=== PATIENT | female | born 1980 | race Caucasian/White ===

== ENCOUNTER 2017-12-14 08:48 | Inpatient (IN) | payer OTHER ==
[2017-12-14] MEDS ORDERED: NS 1,000 ML IV ONE (08:53)
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
[2017-12-14 09:27] LABS: PLATELET COUNT 225 10^3/uL (150-400)
[2017-12-14 09:35] LABS: INR 1.03 (0.83-1.16); PROTIME(PATIENT) 13.7 SEC (12.0-15.0)
[2017-12-14] MEDS ORDERED: ONDANSETRON 4 MG/2 ML VIAL ONE (10:14)
--- NOTE | 2017-12-14 15:59 | CPEKG ---
Test Reason : OPEN Blood Pressure : / mmHG Vent. Rate : 088 BPM Atrial Rate : 090 BPM P-R Int : 156 ms QRS Dur : 113 ms QT Int : 373 ms P-R-T Axes : 047 047 008 degrees QTc Int : 452 ms Sinus rhythm Probable left ventricular hypertrophy Confirmed by Adonay Gonzales ([id number]) on 12/14/2017 3:59:31 PM Referred By: Confirmed By:Adonay Gonzales
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
[2017-12-14] MEDS ORDERED: NICOTINE POLACRILEX 2 MG GUM B PRN (23:31)
[2017-12-14] MEDS ORDERED: MAGNESIUM HYDROXIDE 30 ML UDCUP PO PRN (23:31)
[2017-12-14] MEDS ORDERED: MAG HYDROX/AL HYDROX/SIMETH 30 ML UDCUP PO PRN (23:31)
[2017-12-14] MEDS ORDERED: ACETAMINOPHEN 325 MG TAB ONE (23:57)
[2017-12-15] MEDS: ACETAMINOPHEN 325 MG TAB PO PRN ×2 (00:26→15:31)
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
[2017-12-15] MEDS: OLANZapine DISINTEGR 10 MG TAB PO PRN ×2 (12:15→23:54)
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
[2017-12-15] MEDS: LORazepam 0.5 MG TAB PO PRN ×2 (14:45→23:54)
[2017-12-15] MEDS ORDERED: OLANZapine DISINTEGR 10 MG TAB PO ONE (14:56)
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
[2017-12-15] MEDS ORDERED: OLANZapine DISINTEGR 10 MG TAB PO SCH (21:00)
[2017-12-16] MEDS: ACETAMINOPHEN 325 MG TAB PO PRN (03:56)
--- NOTE | 2017-12-16 06:22 | PDMN ---
Medical Necessity Medical necessity: [facility] B004-IP bipolar disorder INPT care 4 days- M1 hold , unable to care for self, unable to care for her , safety risk. crisis stabilization, med eval needed.
[2017-12-16] MEDS: OLANZapine DISINTEGR 10 MG TAB PO PRN ×2 (06:38→11:02)
--- NOTE | 2017-12-16 07:26 | SOAPPROG ---
SOAP Progress Note Assessment/Plan: Assessment: Bipolar I Disorder, current romy. No improvement noted. (see subjective/ objective note). Patient is not safe to discharge at this time as patient continues to exhibit signs of acute romy, and express romy symptoms. Patient requires continued inpatient care because of current acute mood instability/ romy, and requires inpatient level of care to stabilize in order to no longer be gravely disabled due to mental illness. Patient could benefit from continued inpatient hospitalization for crisis stabilization, safety, and medication evaluation. Plan: (1) Psychotropic medications: After reviewing options, risks, and benefits patient agrees to continue current medications. No other medication changes at this time as more time is needed to determine ongoing tolerability and efficacy. Plan is to continue to observe patient for response and side effects from medications, and ongoing monitoring and evaluation. Consider starting [place] [facility] 600 mg BID and Zyprexa Zydis 10 mg po QHS. (2) Review with patient informed consent and recommendations for psychotropic medication treatment listed below (3) Labs: no additional labs at this time (4) Therapy: continue milieu and group therapy (5) Further investigation including gathering information from patients relatives and review of past case records to inform treatment plan. (6) Safety/Wellness plan and follow-up outpatient appointments to be established prior to discharge. Next steps are for patient to meet with health care recruiter to plan a safe discharge plan and establish outpatient services for ongoing treatment. (7) Confer with inpatient treatment team regarding treatment plan. (8) Legal status: M1 (9) Consider discharge next week if patient is in stable condition, safe, and has a safe discharge plan. (10) Obtain consent from patient to contact patient's parents to obtain collateral PSYCHOTROPIC MEDICATION TREATMENT INFORMED CONSENT and RECOMMENDATIONS: Review nature of condition, diagnosis, and prognosis. Review nature and purpose of psychotropic medication treatment. Review type of psychotropic medications being ordered. Review risk and benefits of psychotropic medication treatment. Review probable length of time patient will need to take medications. Review risk and benefits of not undergoing psychotropic medication treatment. Review alternative treatments to psychotropic medications. Review psychotropic medications contraindications, drug-drug interactions, side effects, and importance of reporting any side effects to a psychiatric provider or nurse during inpatient hospitalization, and upon discharge to patients psychiatric outpatient provider, primary care provider, or other health care management specialist. Review importance of asking a nurse, psychiatric provider, or primary care provider any questions or problems concerning the psychotropic medications. Verify patient understands the information that has been provided, and understands, accepts, and agrees to psychotropic medications. Review patients safety plan and importance of patient to report to staff while hospitalized if patient is ever a danger to self/others, or unable to care for self, and upon discharge, the importance for patient to contact [facility] or [facility], or go to the nearest emergency room, if patient is ever a danger to self/others, or unable to care for self. Recommend that upon discharge patient establish medication management treatment with a psychiatric provider, establishes routine therapy appointments, and follow-up with primary care provider. Verify patient understands and agrees to these recommendations. 12/16/17 07:26 Subjective: Following up with patient for evaluation of romy and safety. Patient reports, "I did not sleep last night, have lots of thoughts to share with you." Patient expresses the following psychiatric symptoms racing thoughts, decreased need for sleep, irritable, and agitated. Patient reports taking medications as prescribed, and describes response to medications as, "Zyprexa helped to slow my thoughts down." Patient does not report undesirable side effects from the medications. Patient reports appetite as poor, and reports no feeling hungry. Patient describes getting no sleep last night. Objective: Vital Signs Temp Pulse Resp BP Pulse Ox 36.6 C 110 H 16 147/105 H 94 12/16/17 06:00 12/16/17 06:00 12/16/17 06:00 12/16/17 06:00 12/16/17 06:00 PT 13.7 SEC (12.0-15.0) 12/14/17 09:08 INR 1.03 (0.83-1.16) 12/14/17 09:08 NURSING REPORT: Consulted with nursing for update on patients progress in treatment. Nurses report patient is not engaged in treatment, is not attending groups, slept 0.5 hours, expresses the following psychiatric symptoms: racing thoughts, unable to sleep; exhibits the following psychiatric symptoms: distractible, disorganized, tangential, pacing halls, labile, intermittent tearfulness, nonsensical, non-linear, illogical, and paranoid; is not eating all meals, is attending to ADLs with direction from staff, is taking medications as prescribed with no report of side effects, with no s/s of EPS/ akathisia, and denies SI/HI, denies A/V hallucinations, and denies delusions. EMBROIDERY CUTTER UPDATE: currently working to set-up outpatient services for medication management and therapy. MSE: The patient is a well-nourished female looking stated chronological age. Attire is appropriate and dress is casual, and is neat and clean. Grooming status is inappropriate and disheveled. Ambulation is independent. Gait is normal and coordinated. Posture is normal and relaxed. Eye contact is appropriate, and adequate. Motor activity is appropriate with purposeful, organized, coordinated movements; with no involuntary movements. Patient writes down everything she says verbatim in a disorganized manner, tearing several pages out of a journal and only writes a few words on per page and then tears-out a new page from journal to write on. Attitude is uncooperative and guarded, defensive, and irritable; agitated. Patient appears distractible and does not relate well to this interviewer. Language production is spontaneous. Rate is pressured. Latency of response is shortened, with irritable, dramatic tone, and high volume, and amount is hypertalkative. Articulation is clear. Patient reports mood as great with expansive, inappropriate affect. Patients thought process is non-linear, disorganized, illogical, tangential, pressured. Associations are loose. Patient does not report suicidal/homicidal thoughts, ideas, or plans. Patient denies auditory, visual hallucinations. Patient denies delusions. Patient does not appear to be attending to internal stimuli. Patients attention and concentration are poor. Patient is oriented to person , place. Patients insight is poor. Patients judgment is poor. - Time Spent With Patient Time Spent With Patient: 15 minutes, met with patient individually. - Pending Discharge Pending Discharge Within 24 Hours: No Pending Discharge Within 48 Hours: No ICD10 Worksheet Patient Problems: Problems Problem Status Onset Bipolar illness Acute Bipolar 1 disorder Acute Dehydration Acute Hypertension Acute (spontaneous vaginal delivery) Acute
[2017-12-16] MEDS: LEVOTHYROXINE 88 MCG TAB PO SCH (08:03)
[2017-12-16] MEDS ORDERED: OLANZapine DISINTEGR 10 MG TAB PO PRN (11:11)
[2017-12-16] MEDS ORDERED: LORazepam 0.5 MG TAB PO PRN (11:12)
[2017-12-16] MEDS: LITHIUM CARBONATE ER 300 MG TAB PO SCH ×2 (14:08→20:51)
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
[2017-12-16] MEDS: amLODIPine BESYLATE 5 MG TAB PO SCH (17:46)
[2017-12-16] MEDS: LURASIDONE HCL 40 MG TAB PO SCH (17:46)
[2017-12-16] MEDS ORDERED: IBUPROFEN 600 MG TAB PO ONE (21:45)
[2017-12-17] MEDS: ACETAMINOPHEN 500 MG TAB PO PRN ×2 (01:21→17:19)
[2017-12-17] MEDS: OLANZapine 5 MG TAB PO PRN (01:30)
--- NOTE | 2017-12-17 08:30 | SOAPPROG ---
SOAP Progress Note Assessment/Plan: Assessment: Bipolar I Disorder, current romy. No improvement noted. (see subjective/ objective note). Patient is not safe to discharge at this time as patient continues to exhibit signs of romy, and express romy symptoms. Patient requires continued inpatient care because of current mood instability, and requires inpatient level of care to stabilize in order to no longer be gravely disabled due to mental illness. Patient is currently unable to care for herself , and patient has a 3-month-old child that will require her to be stable before she can appropriately care for her. Patients child is currently with patients parents while patient is hospitalized. Patient to return to caring for her child once she is stable and safe to discharge from hospital. Patient could benefit from continued inpatient hospitalization for crisis stabilization, safety, and medication evaluation. Plan: (1) Psychotropic medications: After reviewing options, risks, and benefits patient agrees to continue current medications. No medication changes at this time as more time is needed to determine ongoing tolerability and efficacy. Plan is to continue to observe patient for response and side effects from medications, and ongoing monitoring and evaluation. (2) Review with patient informed consent and recommendations for psychotropic medication treatment listed below (3) Labs: no additional labs at this time (4) Therapy: continue milieu and group therapy (5) Further investigation including gathering information from patients relatives and review of past case records to inform treatment plan. (6) Safety/Wellness plan and follow-up outpatient appointments to be established prior to discharge. Next steps are for patient to meet with pet care worker to plan a safe discharge plan and establish outpatient services for ongoing treatment. (7) Confer with inpatient treatment team regarding treatment plan. (8) Legal status: M1; patient to be placed on [facility] today (9) Consider discharge next week if patient is in stable condition, safe, and has a safe discharge plan. PSYCHOTROPIC MEDICATION TREATMENT INFORMED CONSENT and RECOMMENDATIONS: Review nature of condition, diagnosis, and prognosis. Review nature and purpose of psychotropic medication treatment. Review type of psychotropic medications being ordered. Review risk and benefits of psychotropic medication treatment. Review probable length of time patient will need to take medications. Review risk and benefits of not undergoing psychotropic medication treatment. Review alternative treatments to psychotropic medications. Review psychotropic medications contraindications, drug-drug interactions, side effects, and importance of reporting any side effects to a psychiatric provider or nurse during inpatient hospitalization, and upon discharge to patients psychiatric outpatient provider, primary care provider, or other health wound care coordinator. Review importance of asking a nurse, psychiatric provider, or primary care provider any questions or problems concerning the psychotropic medications. Verify patient understands the information that has been provided, and understands, accepts, and agrees to psychotropic medications. Review patients safety plan and importance of patient to report to staff while hospitalized if patient is ever a danger to self/others, or unable to care for self, and upon discharge, the importance for patient to contact [facility] or [facility], or go to the nearest emergency room, if patient is ever a danger to self/others, or unable to care for self. Recommend that upon discharge patient establish medication management treatment with a psychiatric provider, establishes routine therapy appointments, and follow-up with primary care provider. Verify patient understands and agrees to these recommendations. 12/17/17 08:32 Subjective: Following up with patient for evaluation of romy and safety. Patient reports, "My medical needs are not being met, I need to go and take care of a lot of things. I need to make all these phone calls and call about all the labs and tests I have had done in the past." Patient expresses the following psychiatric symptoms racing thoughts, decreased need for sleep, irritable, and agitated. Patient reports taking medications as prescribed, and describes response to medications as, "Zyprexa helps me to feel more tired and slows me down, my mind is not moving so fast after I take it." Patient does not report undesirable side effects from the medications. Patient agrees to continue current medications. Patient describes not sleeping well last night. Patient states she does not feel tired, and is having a difficult time falling asleep and staying asleep. Patient describes not feeling tired because she has so many things on her mind as she has a lot of things to do and doesn't have time to sleep. Patient reports Zyprexa is beneficial in slowing down her mind and making her not feel so on edge; reports she feels better and taking Zyprexa and this medication has improved her sleep some. Patient does not agree to stay hospitalized on a voluntary basis. Objective: Vital Signs Temp Pulse Resp BP Pulse Ox 36.7 C 103 H 16 139/94 H 94 12/17/17 06:00 12/17/17 06:00 12/17/17 06:00 12/17/17 06:00 12/16/17 06:00 PT 13.7 SEC (12.0-15.0) 12/14/17 09:08 INR 1.03 (0.83-1.16) 12/14/17 09:08 NURSING REPORT: Consulted with nursing for update on patients progress in treatment. Nurses report patient is not engaged in treatment, is not attending groups, patient slept poorly throughout the night and slept on and off for a total of 5 hours; expresses the following psychiatric symptoms: racing thoughts , unable to sleep, severe anxiety; exhibits the following psychiatric symptoms: distractible, disorganized, tangential, pacing halls, labile, intermittent tearfulness, nonsensical, non-linear, illogical, and paranoid; patient continues to require PRN medications for acute romy/agitation; is eating all meals, is attending to ADLs with significant direction from staff, is taking medications as prescribed with no report of side effects, with no s/s of EPS/ akathisia, and denies SI/HI, denies A/V hallucinations, and denies delusions. CUSTOMER SERVICES COORDINATOR UPDATE: currently working to set-up outpatient services for medication management and therapy. HOSPITALIZATION STATUS: request patient stays for voluntary hospitalization. Patient refused. Provide rationale to patient for her continued need for hospitalization and next step is for involuntary hospitalization on short-term certification (STC). Explain STC to patient. Patient requests to end interview and states she has no questions regarding STC. MD to meet with patient regarding STC. MSE: The patient is a well-nourished female looking stated chronological age. Attire is appropriate and dress is casual, and is neat and clean. Grooming status is inappropriate and disheveled. Ambulation is independent. Gait is normal and coordinated. Posture is normal and relaxed. Eye contact is appropriate, and adequate. Motor activity is appropriate with purposeful, organized, coordinated movements; with no involuntary movements. Attitude is uncooperative and guarded, defensive, and irritable; agitated. Patient appears distractible and does not relate well to this interviewer. Language production is spontaneous. Rate is pressured. Latency of response is shortened, with irritable, dramatic tone, and high volume, and amount is hypertalkative. Articulation is mumbled due to pressured speech. Patient reports mood as okay with expansive, inappropriate affect. Patients thought process is non-linear, disorganized, illogical, tangential, pressured. Associations are loose. Patient does not report suicidal/homicidal thoughts, ideas, or plans. Patient denies auditory, visual hallucinations. Patient denies delusions. Patient does not appear to be attending to internal stimuli. Patients attention and concentration are poor. Patient is oriented to person, place. Patients insight is poor. Patients judgment is poor. - Time Spent With Patient Time Spent With Patient: 30 minutes, met with patient individually. - Pending Discharge Pending Discharge Within 24 Hours: No Pending Discharge Within 48 Hours: No ICD10 Worksheet Patient Problems: Problems Problem Status Onset Bipolar illness Acute Bipolar 1 disorder Acute Dehydration Acute Hypertension Acute (spontaneous vaginal delivery) Acute
[2017-12-17] MEDS: amLODIPine BESYLATE 5 MG TAB PO SCH (08:53)
[2017-12-17] MEDS: LITHIUM CARBONATE ER 300 MG TAB PO SCH ×2 (08:54→20:34)
[2017-12-17] MEDS: LEVOTHYROXINE 88 MCG TAB PO SCH (09:45)
--- NOTE | 2017-12-17 14:20 | ASMTCMCOM ---
CM Note CM Note Notes: Summary of several meetings with ct. and with ct. and family: CC met with ct. in the morning. Ct. presented as somewhat disorganized. Ct. perseverated on her medical issues and needing a battery of medical tests. Ct. reported that she doesn't feel that the unit is good for her and reported that she would like to be discharged home when her 72 hours hold . CC and PAPER BALING MACHINE OPERATOR met with ct., MOC and sister of ct. Both MOC and SOC reported that they feel ct. would be better off at home. They strongly advocated for her to be discharged this afternoon. PAPER BALING MACHINE OPERATOR explained that ct. is not stable and that she would not be discharged today. PAPER BALING MACHINE OPERATOR discussed Voluntary stay Vs. short term cert. Ct. continued to argue for immediate discharge. She reported that she has spacial medical needs which are not being met on the unit. MOC reported that ct. has celiac disease and has special dietary needs.Per MOC ct. needs to have small meals every two hours and get additional fluids other than just water. CC let family know that ct. was refed to the [facility] program for additional support following d/c. Since family continued to advocate for an early discharge it was agreed that Dr. Alvarez will meet with ct. this afternoon for further assessment. Date Signed: 12/17/2017 02:20 PM Electronically Signed By:Annemarie Greene
[2017-12-17] MEDS: LURASIDONE HCL 40 MG TAB PO SCH (20:34)
[2017-12-18] MEDS: ACETAMINOPHEN 500 MG TAB PO PRN ×2 (00:57→13:31)
[2017-12-18] MEDS: OLANZapine 5 MG TAB PO PRN ×2 (05:33→05:47)
[2017-12-18] MEDS: LEVOTHYROXINE 88 MCG TAB PO SCH (05:47)
[2017-12-18] MEDS: amLODIPine BESYLATE 5 MG TAB PO SCH (08:53)
[2017-12-18] MEDS: LITHIUM CARBONATE ER 300 MG TAB PO SCH ×2 (08:53→17:56)
--- NOTE | 2017-12-18 10:48 | SOAPPROG ---
SOAP Progress Note Assessment/Plan: Assessment: Bipolar I Disorder, most recent episode romy. Improvement noted. (see subjective/objective note). Patient is not safe to discharge at this time as patient continues to exhibit signs of romy, and express romy symptoms. Patient requires continued inpatient care because of current mood instability, and requires inpatient level of care to stabilize in order to no longer be gravely disabled due to mental illness. Patient could benefit from continued inpatient hospitalization for crisis stabilization, safety, and medication evaluation. Plan: (1) Psychotropic medications: After reviewing options, risks, and benefits patient agrees to continue current medications. No medication changes at this time as more time is needed to determine ongoing tolerability and efficacy. Plan is to continue to observe patient for response and side effects from medications, and ongoing monitoring and evaluation. (2) Review with patient informed consent and recommendations for psychotropic medication treatment listed below (3) Labs: lithium level ordered for 12/19/17 at 0600 (4) Therapy: continue milieu and group therapy (5) Further investigation including gathering information from patients relatives and review of past case records to inform treatment plan. (6) Safety/Wellness plan and follow-up outpatient appointments to be established prior to discharge. Next steps are for patient to meet with childcare director to plan a safe discharge plan and establish outpatient services for ongoing treatment. (7) Confer with inpatient treatment team regarding treatment plan. (8) Legal status: voluntary (9) Consider discharge tomorrow (Friday) if patient is in stable condition, safe , and has a safe discharge plan. (10) Patient provided with both verbal and written medication education including risks, benefits, contraindications, drug-drug interactions, and side effects of psychotropic medications. PSYCHOTROPIC MEDICATION TREATMENT INFORMED CONSENT and RECOMMENDATIONS: Review nature of condition, diagnosis, and prognosis. Review nature and purpose of psychotropic medication treatment. Review type of psychotropic medications being ordered. Review risk and benefits of psychotropic medication treatment. Review probable length of time patient will need to take medications. Review risk and benefits of not undergoing psychotropic medication treatment. Review alternative treatments to psychotropic medications. Review psychotropic medications contraindications, drug-drug interactions, side effects, and importance of reporting any side effects to a psychiatric provider or nurse during inpatient hospitalization, and upon discharge to patients psychiatric outpatient provider, primary care provider, or other health child caregiver. Review importance of asking a nurse, psychiatric provider, or primary care provider any questions or problems concerning the psychotropic medications. Verify patient understands the information that has been provided, and understands, accepts, and agrees to psychotropic medications. Review patients safety plan and importance of patient to report to staff while hospitalized if patient is ever a danger to self/others, or unable to care for self, and upon discharge, the importance for patient to contact [facility] or [facility], or go to the nearest emergency room, if patient is ever a danger to self/others, or unable to care for self. Recommend that upon discharge patient establish medication management treatment with a psychiatric provider, establishes routine therapy appointments, and follow-up with primary care provider. Verify patient understands and agrees to these recommendations. 12/18/17 11:06 Subjective: Following up with patient for evaluation of romy and safety. Patient reports, "I am doing better, and slept better last night. Will you please lower my Tylenol dose to 500 mg?" Patient expresses the following psychiatric symptoms none. Patient reports taking medications as prescribed, and describes response to medications as, "Medications seem to be working well. When I was on a therapeutic dose of lithium in the past, I was on 900 mg BID, but maybe this lower dose of 600 mg BID will be okay. I did ask for Zyprexa 5 mg this morning due to feeling on edge." Patient does not report undesirable side effects from the medications. Patient agrees to continue current medications. Patient describes sleeping well last night, and states it has been the best sleep she has had for the last 3 days. Patient agrees to continue voluntary hospitalization and agrees to meet with treatment team today to update her treatment plan. Objective: Vital Signs Temp Pulse Resp BP Pulse Ox 37 C 100 14 135/90 H 96 12/18/17 06:00 12/18/17 06:00 12/18/17 06:00 12/18/17 06:00 12/18/17 06:00 PT 13.7 SEC (12.0-15.0) 12/14/17 09:08 INR 1.03 (0.83-1.16) 12/14/17 09:08 NURSING REPORT: Consulted with nursing for update on patients progress in treatment. Nurses report patient is engaged in treatment, is attending groups, patient slept throughout the night with 5.5 hours of sleep; expresses the following psychiatric symptoms: anxiety; exhibits the following psychiatric symptoms: disorganized, tangential (improved since admission); patient has require less PRN medications for acute romy/agitation; is eating about 50% of meals, is independently attending to ADLs, is taking medications as prescribed with no report of side effects, with no s/s of EPS/akathisia, and denies SI/HI, denies A/V hallucinations, and denies delusions. INTERLACER UPDATE: currently working to set-up outpatient services for medication management with patient's OP psychiatrist Dr. Pantoja. 12/17/17 FAMILY MEETING: Patient requests family meeting with her mother and sister to discuss continued hospitalization. This BUSINESS OFFICE COORDINATOR, health care specialist, patients mother and sister met with patient at patients request from 12:45-1315 to discuss need for patients further hospitalization. Patients mother and sister report patient has improved since her admission; however, state patient was not safe to discharge when her M1 expires at 4pm today. Patients mother and sister are supportive of patients continued hospitalization and suggest to patient she continue to remain hospitalized to further stabilize. Patients mother and sister suggest to patient she remain in hospital on a voluntary basis after her hold expires today. Patient agrees to meet with MD today prior to the expiration of her M1 hold to discuss need for continued hospitalization. Patient states, "I know I need treatment." Patient's mother and sister report they plan to continue to support the patient in her ongoing treatment after discharge, and state they are currently caring for the patient's daughter and plan to continue provide care for the patient's child while the patient continues treatment on an outpatient basis until patient is stable enough to safely provide care for the child independently. Patient reports she will bottle feed her child, and states she will no longer breastfeed due to the potential risks to baby from current psychotropic medications she is taking. 12/17/17: MD CONSULT: MD meets with patient at 1545 to recommend patient remain hospitalized due to current psychiatric condition. After discussion with patient, patient agrees to voluntary hospitalization and an order is written for patient to sign-in for voluntary hospitalization. MSE from 12/17/17 @ 1245: Patient presents with her mother and sister; health care specialist is also present. The patient is a well-nourished female looking stated chronological age. Attire is appropriate and dress is casual, and is neat and clean. Grooming status is appropriate, neat and clean. Ambulation is independent. Gait is normal and coordinated. Posture is normal and relaxed. Eye contact is appropriate, and adequate. Motor activity is appropriate with purposeful, organized, coordinated movements; with no involuntary movements. Attitude is cooperative and friendly. Patient appears less distractible and does relate fairly well to this interviewer. Language production is spontaneous. Rate is less pressured compared to this morning. Latency of response is shortened, and amount is more appropriate for setting as patient no longer hypertalkative. Patient shares in conversation appropriately. Patient pauses and allows other individuals in the room to talk. Articulation is clear. Patient reports mood as okay with appropriate and congruent affect. Patients thought process is improved, is linear, less disorganized, less tangential, less pressured. Associations are more connected compared to this morning. Patient does not report suicidal/homicidal thoughts, ideas, or plans. Patient denies auditory, visual hallucinations. Patient denies delusions. Patient does not appear to be attending to internal stimuli. Patients attention and concentration are improved and adequate for setting. Patient is oriented to person, place, and situation. Patients insight is poor, however, has improved since admission as she motivated and engaged in her treatment. Patients judgment has improved as evidenced by motivation and engagement in treatment. TREATMENT TEAM MEETING: Patient met with this BUSINESS OFFICE COORDINATOR and entire treatment team including charge nurse, psychiatrist, care coordinators, and therapist to discuss her treatment plan. Patient agrees to continued voluntary hospitalization with lithium level tomorrow morning. Patient requests to discharge tomorrow after lithium level, and if she is stable and has a safe discharge plan. Patient states she when she was on lithium in the past, she was at a therapeutic level when taking 900 mg BID, and expresses concern current dose of lithium may be too low. Team provides patient education regarding need for lithium level and determine tolerability and efficacy prior to making adjustments to current lithium dose. Patient agrees to lithium level tomorrow AM and agrees to continue current medications at current doses. Patient states she has an appointment scheduled with her OP psychiatrist, Dr. Pantoja, tomorrow at noon. purchasing coordinator reports he will confirm appointment, and plan is established for patient to discharge tomorrow if stable and safe, and attend her scheduled OP appointment with Dr. Pantoja. MSE: The patient is a well-nourished female looking stated chronological age. Attire is appropriate and dress is casual, and is neat and clean. Grooming status is appropriate, neat and clean. Ambulation is independent. Gait is normal and coordinated. Posture is normal and relaxed. Eye contact is appropriate, and adequate. Motor activity is appropriate with purposeful, organized, coordinated movements; with no involuntary movements. Attitude is cooperative and friendly. Patient appears less distractible and does relate fairly well to this interviewer and treatment team. Language production is spontaneous. Rate is less pressured compared to yesterday. Latency of response is shortened, and amount is more appropriate for setting as patient no longer hypertalkative. Patient shares in conversation appropriately. Patient pauses and allows other individuals in the room to talk. Articulation is clear. Patient reports mood as okay with appropriate and congruent affect. Patients thought process is improved, is linear, less disorganized, less tangential, less pressured; overall thought process has improved since admission. Associations are more connected compared to yesterday. Patient does not report suicidal/homicidal thoughts, ideas, or plans. Patient denies auditory, visual hallucinations. Patient denies delusions. Patient does not appear to be attending to internal stimuli. Patient's attention and concentration are improved and adequate for setting. Patient is oriented to person, place, and situation. Patient's insight is fair, however, has improved since admission as she motivated and engaged in her treatment. Patient's judgment has improved as evidenced by motivation and engagement in treatment. Patient has no apparent dysfunction in recent or remote memory noted, and no evidence of gross cognitive dysfunction noted at any point during the interview. - Time Spent With Patient Time Spent With Patient: 45 minutes, met with patient individually, and met with patient with treatment team. - Pending Discharge Pending Discharge Within 24 Hours: Yes Pending Discharge Within 48 Hours: No Pending Discharge Date: 12/19/17 Pending Discharge Time: 11:00 ICD10 Worksheet Patient Problems: Problems Problem Status Onset Bipolar I disorder, current or most recent episode manic, severe with anxious distress Acute Bipolar 1 disorder Acute Hypertension Acute
--- NOTE | 2017-12-18 11:39 | ASMTBHDC ---
Notes Note: Notes: Client participated in treatment team meeting today. Client will be discharging tomorrow around 11am after blood work up is complete and p/u by family and taken to her out-paitent appointments, etc. See below: Follow up with: Dr. Mynor Pantoja [address] [place] [address] Appt: FridayDecember 19 (12/19/17) at 1200: pm (noon) [facility] [address] [place] [address] Family to follow up due to short stay and CC unable to confirm available appts. Additional Resources: [facility] [address] [place] [address] Date Signed: 12/18/2017 10:47 AM Electronically Signed By:Carl Jay
[2017-12-18] MEDS: LURASIDONE HCL 40 MG TAB PO SCH (17:56)
[2017-12-18] MEDS: diphenhydrAMINE 25 MG CAP PO PRN (21:07)
[2017-12-19] MEDS: ACETAMINOPHEN 500 MG TAB PO PRN (01:53)
[2017-12-19] MEDS: diphenhydrAMINE 25 MG CAP PO PRN (03:06)
[2017-12-19] MEDS: LEVOTHYROXINE 88 MCG TAB PO SCH (06:22)
[2017-12-19] MEDS: LITHIUM CARBONATE ER 300 MG TAB PO SCH (08:04)
[2017-12-19] MEDS: amLODIPine BESYLATE 5 MG TAB PO SCH (08:04)
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
[2017-12-19 10:01] VITALS: BP 139/87
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
== END 2017-12-19 11:00 | disposition home or self-care (01) | DRG 885 ==
LOC: EDUNIT# → EEVIPCON 08:48 → BBEH 23:15
PROVIDERS: ADMIT Psychiatry & Neurology Behavioral Neurology & Neuropsychiatry; ATTEND Psychiatry & Neurology Behavioral Neurology & Neuropsychiatry
DX: F31.2 Bipolar disorder, current episode manic severe with psychotic features (principal); I10 Essential (primary) hypertension; R51 Headache; K90.0 Celiac disease; E03.9 Hypothyroidism, unspecified; Z91.419 Personal history of unspecified adult abuse
CPT/HCPCS: 80305; 84484-PO; 96374; G0480; J1200; J2405

== ENCOUNTER → 2018-08-12 | Outpatient (CLI) | payer OTHER | LOC: FIMAGING 08:22 | PROVIDERS: ATTEND Internal Medicine Cardiovascular Disease | DX: R09.89 Other specified symptoms and signs involving the circulatory and respiratory systems (principal); I10 Essential (primary) hypertension ==